=== PATIENT | male | born 1960 | race Caucasian/White ===

== ENCOUNTER 2018-03-08 07:07 | Day surgery (SDC) | payer OTHER ==
[~2018-03-08] VITALS: Ht 182.9 cm; Wt 83.3 kg
[~2018-03-08 07:07] MED LIST: BUPIVACAINE/PF 0.5% ONE; EPINEPHRINE 1 MG/ML, 1ML ONE
[2018-03-08] MEDS ORDERED: none per pt (07:29)
[2018-03-08] MEDS ORDERED: LACTATED RINGERS 1,000 ML IV SCH (07:30)
[2018-03-08 07:38] VITALS: BP 137/88
[2018-03-08] MEDS ORDERED: MIDAZOLAM 1 MG/ML, 2ML ONE (08:39)
[2018-03-08] MEDS ORDERED: FENTANYL PF 100 MCG/2ML ONE (08:39)
[2018-03-08] MEDS ORDERED: CEFAZOLIN 1,000 MG ONE (09:44)
[2018-03-08] MEDS ORDERED: DEXAMETHASONE 4 MG/ML, 1ML ONE (09:44)
[2018-03-08] MEDS ORDERED: PROPOFOL 10 MG/ML, 20ML ONE (09:44)
[2018-03-08] MEDS ORDERED: ONDANSETRON 2MG/ML, 2ML ONE (09:44)
[2018-03-08] MEDS ORDERED: NEOSTIGMINE 1 MG/ML, 10ML ONE (09:44)
[2018-03-08] MEDS ORDERED: SUCCINYLCHOLINE 20 MG/ML, 10ML ONE (09:44)
[2018-03-08] MEDS ORDERED: GLYCOPYRROLATE 0.2MG/1ML, 5ML ONE (09:44)
[2018-03-08] MEDS ORDERED: HYDROcodone/APAP 7.5-325MG/15ML UDC PO PRN (10:00)
[2018-03-08] MEDS ORDERED: EPHEDRINE 50 MG/ML, 1ML IVPush PRN (10:00)
[2018-03-08] MEDS ORDERED: OXYcodone 5 MG/5 ML ORAL.SOL UDC PO PRN (10:00)
[2018-03-08] MEDS ORDERED: ONDANSETRON 2MG/ML, 2ML IVPush PRN (10:00)
[2018-03-08] MEDS ORDERED: LABETALOL 5MG/ML, 20ML IV PRN (10:00)
[2018-03-08] MEDS ORDERED: GABAPENTIN 300 MG CAPSULE PO ONE (10:00)
[2018-03-08] MEDS ORDERED: PROMETHAZINE 12.5 MG SUPP PR PRN (10:00)
[2018-03-08] MEDS ORDERED: PROMETHAZINE 25 MG/ML, 1ML IV PRN (10:00)
[2018-03-08] MEDS ORDERED: DIAZEPAM 5 MG/ML, 2ML IVPush PRN (10:00)
[2018-03-08] MEDS ORDERED: morphine SULFATE 10 MG/ML, 1ML IV PRN (10:00)
[2018-03-08] MEDS ORDERED: MEPERIDINE/PF 25MG/0.5ML IVPush PRN (10:00)
[2018-03-08] MEDS ORDERED: OXYcodone IR 5MG TABLET PO ONE (10:00)
[2018-03-08] MEDS ORDERED: FAMOTIDINE 20 MG TABLET PO ONE (10:00)
[2018-03-08] MEDS ORDERED: ACETAMINOPHEN 500 MG TABLET PO ONE (10:00)
[2018-03-08] MEDS ORDERED: ALBUTEROL SULFATE 2.5 MG/3 ML NPPB PRN (10:00)
[2018-03-08] MEDS ORDERED: FENTANYL PF 100 MCG/2ML IV PRN (10:00)
[2018-03-08] MEDS ORDERED: METOPROLOL 1 MG/ML, 5ML IV PRN (10:00)
[2018-03-08] MEDS ORDERED: ALBUTEROL/IPRATROPIUM 2.5MG/0.5MG, 3 ML NPPB PRN (10:00)
[2018-03-08] MEDS ORDERED: hydrALAzine 20 MG/ML, 1ML IV PRN (10:00)
[2018-03-08] MEDS ORDERED: MIDAZOLAM 1 MG/ML, 2ML IV PRN (10:00)
[2018-03-08] MEDS ORDERED: MEPERIDINE/PF 25MG/0.5ML ONE (10:21)
[2018-03-08] MEDS ORDERED: METOPROLOL 1 MG/ML, 5ML ONE (10:21)
== END 2018-03-08 12:05 ==
LOC: OUT 07:07
PROVIDERS: ATTEND Colon & Rectal Surgery
DX: K40.90 Unilateral inguinal hernia, without obstruction or gangrene, not specified as recurrent (principal); F17.210 Nicotine dependence, cigarettes, uncomplicated; J44.9 Chronic obstructive pulmonary disease, unspecified; Z72.89 Other problems related to lifestyle
CPT/HCPCS: 49650; C1727; C1781; J0171; J0330; J0690; J1100; J2175; J2250; J2405; J2704; J2710; J3010; J3490; J7120